=== PATIENT | male | born 1945 | race Caucasian/White ===

== ENCOUNTER 2017-02-21 16:27 | Inpatient (IN) | payer OTHER ==
[~2017-02-21] VITALS: Ht 167.6 cm; Wt 101.4 kg
[2017-02-21 17:06] LABS: MCH 28.2 PG (29.0-34.0); MCHC 32.4 G/DL (30.0-36.0); MCV 87.2 FL (86-99); MEAN PLAT.VOLUME 11.3 uM^3 (9.0-12.4); PLATELET COUNT 179 K/uL (156-360); RBC DIS.WIDTH-CV 15.6 % (11.8-14.6); RBC DIS.WIDTH-SD 50.3 % (39-53); RED BLOOD COUNT 4.36 M/uL (4.00-5.50); WHITE BLOOD COUNT 11.7 K/uL (4.1-10.2)
[2017-02-21 17:12] LABS: INTER. NORMALIZED RATIO 3.3; PROTHROMBIN TIME 37.6 SEC (10.2-12.9)
[2017-02-21 17:14] LABS: CHLORIDE 108 mEq/L (99-109); POTASSIUM 3.1 mEq/L (3.7-5.4); SODIUM 137 mEq/L (136-147)
[2017-02-21 17:15] LABS: PTT 38.9 SEC (25-37)
[2017-02-21 17:16] LABS: GLUCOSE 157 mg/dL (70-99)
[2017-02-21 17:18] LABS: ANION GAP 12 MEQ/L (2-14)
[2017-02-21 17:20] LABS: GFR ESTIMATE (CALCULATED) > 59 mL/min/
[2017-02-21 17:21] LABS: UREA NITROGEN (BUN) 12 mg/dL (9-23)
[2017-02-21 17:26] LABS: TROP-I INTERPRETATION NEGATIVE; TROPONIN-I 0.06 ng/mL (0.0-0.30)
[2017-02-21 18:46] LABS: ADD MIUA? YES; BILIRUBIN NEGATIVE; BLOOD MODERATE; COLOR YELLOW ((YELLOW)); GLUCOSE (STRIP) NEGATIVE; KETONES NEGATIVE; LEUKOCYTES NEGATIVE; NITRITE NEGATIVE; PROTEIN (STRIP) >=500; SPECIFIC GRAVITY 1.017 (1.000-1.030); UROBILINOGEN 0.2 MG/DL (0.2-1.0)
[2017-02-21 18:54] LABS: BACTERIA NONE SEEN /HPF; EPITHELIAL CELLS RARE /HPF; MUCUS TRACE /LPF; RED BLOOD CELLS 0-5 /HPF (0-5); UCUL ADDED? NO; WHITE BLOOD CELLS 0-5 /HPF (0-5)
[2017-02-21] MEDS ORDERED: COUMADIN2 MG PO ×2 (19:52→19:55)
[2017-02-21 20:21] LABS: INFLUENZA A VIRAL ANTIGEN NEGATIVE; INFLUENZA B VIRAL ANTIGEN NEGATIVE
[2017-02-21 22:39] LABS: POINT-OF-CARE METER ID UU13113774
[2017-02-21 23:08] VITALS: BP 174/84
[2017-02-21 23:57] VITALS: BP 147/73
[2017-02-22] MEDS ORDERED: NEURONTIN300 MG PO (00:07)
[2017-02-22] MEDS ORDERED: COREG12.5 M1 PO (00:08)
[2017-02-22] MEDS ORDERED: HYTRIN10 MG PO (00:09)
[2017-02-22] MEDS ORDERED: PACERONE200 MG PO (00:11)
[2017-02-22] MEDS ORDERED: LIPITOR40 MG PO (00:11)
[2017-02-22] MEDS ORDERED: ZESTRIL40 MG PO (00:15)
[2017-02-22] MEDS ORDERED: PRINIVIL20 MG PO (00:15)
[2017-02-22] MEDS ORDERED: LAXATIVE FEMININ5 MG PO (01:42)
[2017-02-22] MEDS ORDERED: OMEPRAZOLE20 MG PO (01:43)
[2017-02-22] MEDS ORDERED: METFORMIN HCL500 MG PO (01:44)
[2017-02-22] MEDS ORDERED: FINASTERIDE5 MG PO (01:45)
[2017-02-22] MEDS ORDERED: CYCLOBENZAPRINE10 MG PO (01:46)
[2017-02-22] MEDS ORDERED: ALLOPURINOL100 MG PO (01:47)
[2017-02-22] MEDS ORDERED: PROAIR RESPICL90 MCG IH (01:53)
[2017-02-22] MEDS ORDERED: ARTIFICIAL TEAR15 M1 BOTH EYES (01:57)
[2017-02-22 05:05] LABS: HEMATOCRIT 34.5 % (38.0-50.0); MCH 28.2 PG (29.0-34.0); MCHC 32.2 G/DL (30.0-36.0); MCV 87.8 FL (86-99); MEAN PLAT.VOLUME 11.3 uM^3 (9.0-12.4); PLATELET COUNT 160 K/uL (156-360); RBC DIS.WIDTH-CV 15.9 % (11.8-14.6); RBC DIS.WIDTH-SD 51.4 % (39-53); RED BLOOD COUNT 3.93 M/uL (4.00-5.50); WHITE BLOOD COUNT 10.4 K/uL (4.1-10.2)
[2017-02-22 05:17] LABS: CHLORIDE 111 mEq/L (99-109); SODIUM 141 mEq/L (136-147)
[2017-02-22 05:19] LABS: GLUCOSE 121 mg/dL (70-99)
[2017-02-22 05:20] LABS: ANION GAP 10 MEQ/L (2-14)
[2017-02-22 05:21] LABS: TOTAL BILIRUBIN 0.8 mg/dL (0.0-1.0)
[2017-02-22 05:23] LABS: ALKALINE PHOSPHATASE 60 IU/L (3-129); GFR ESTIMATE (CALCULATED) > 59 mL/min/
[2017-02-22 05:24] LABS: UREA NITROGEN (BUN) 14 mg/dL (9-23)
[2017-02-22 06:29] LABS: POINT-OF-CARE METER ID UU13113774
[2017-02-22 07:44] VITALS: BP 171/79
[2017-02-22 09:06] VITALS: BP 142/75
[2017-02-22 11:41] LABS: INTER. NORMALIZED RATIO 2.4; PROTHROMBIN TIME 27.4 SEC (10.2-12.9)
[2017-02-22 12:23] LABS: POINT-OF-CARE METER ID UU13113774
[2017-02-22 13:13] LABS: C DIFF TOXIN NEGATIVE (NEGATIVE)
[2017-02-22 13:21] LABS: PROBE CHECK PASS; SPECIMEN PROCESSING CONTROL PASS
[2017-02-22 16:06] VITALS: BP 146/71
[2017-02-22 16:49] LABS: POINT-OF-CARE METER ID UU13113725
[2017-02-22 21:19] LABS: POINT-OF-CARE METER ID UU13113774
[2017-02-23 00:23] VITALS: BP 167/89
[2017-02-23 05:58] LABS: HEMATOCRIT 35.5 % (38.0-50.0); MCH 27.4 PG (29.0-34.0); MCV 88.3 FL (86-99); MEAN PLAT.VOLUME 11.8 uM^3 (9.0-12.4); PLATELET COUNT 173 K/uL (156-360); RBC DIS.WIDTH-CV 16.2 % (11.8-14.6); RBC DIS.WIDTH-SD 53.2 % (39-53); RED BLOOD COUNT 4.02 M/uL (4.00-5.50); WHITE BLOOD COUNT 7.9 K/uL (4.1-10.2)
[2017-02-23 06:01] LABS: POINT-OF-CARE METER ID UU13113725
[2017-02-23 06:08] LABS: INTER. NORMALIZED RATIO 2.3; PROTHROMBIN TIME 26.3 SEC (10.2-12.9)
[2017-02-23 06:37] LABS: ANION GAP 11 MEQ/L (2-14); CHLORIDE 111 MEQ/L (99-109); GFR ESTIMATE (CALCULATED) > 59 mL/min/; GLUCOSE 128 mg/dL (70-99); POTASSIUM 3.5 MEQ/L (3.7-5.4); SAMPLE HEMOLYSIS CHECK 0; SAMPLE ICTERIC CHECK 0; SAMPLE LIPEMIA CHECK 0; SODIUM 142 MEQ/L (136-147); UREA NITROGEN (BUN) 12 mg/dL (9-23)
[2017-02-23 08:00] VITALS: BP 154/81
[2017-02-23 12:02] LABS: POINT-OF-CARE METER ID UU13113725
[2017-02-23 16:32] LABS: POINT-OF-CARE METER ID UU13113725
[2017-02-23 21:02] LABS: POINT-OF-CARE METER ID UU13113774
[2017-02-24 00:01] VITALS: BP 170/84
[2017-02-24 00:03] VITALS: BP 162/82
[2017-02-24 06:28] LABS: POINT-OF-CARE METER ID UU13113774
[2017-02-24 06:36] LABS: INTER. NORMALIZED RATIO 2.7; PROTHROMBIN TIME 30.7 SEC (10.2-12.9)
[2017-02-24 06:49] LABS: ANION GAP 12 MEQ/L (2-14); CHLORIDE 111 MEQ/L (99-109); GFR ESTIMATE (CALCULATED) > 59 mL/min/; GLUCOSE 132 mg/dL (70-99); POTASSIUM 3.5 MEQ/L (3.7-5.4); SAMPLE HEMOLYSIS CHECK 0; SAMPLE ICTERIC CHECK 0; SAMPLE LIPEMIA CHECK 0; SODIUM 143 MEQ/L (136-147); UREA NITROGEN (BUN) 12 mg/dL (9-23)
[2017-02-24 07:20] VITALS: BP 170/84
[2017-02-24 11:03] LABS: POINT-OF-CARE METER ID UU13113725
[2017-02-24] MEDS ORDERED: ATORVASTATIN CA40 MG PO (14:55)
[2017-02-24] MEDS ORDERED: LISINOPRIL40 MG PO (14:55)
[2017-02-24 15:20] VITALS: BP 164/76
[2017-02-24 16:25] LABS: POINT-OF-CARE METER ID UU13113725
== END 2017-02-24 17:39 | disposition home health service (06) | DRG 872 ==
LOC: EME 16:27 → EDOF 19:37 → 5EAST 19:37 → ENRESERV 19:56 → 5EAST 21:45
PROVIDERS: Emergency Medicine; Hospitalist; Internal Medicine
DX: A41.9 Sepsis, unspecified organism (principal); B34.9 Viral infection, unspecified; E86.0 Dehydration; E87.2 Acidosis; I48.91 Unspecified atrial fibrillation; J44.9 Chronic obstructive pulmonary disease, unspecified; E11.9 Type 2 diabetes mellitus without complications; R55 Syncope and collapse; I10 Essential (primary) hypertension; R19.7 Diarrhea, unspecified; W19.XXXA Unspecified fall, initial encounter; I67.2 Cerebral atherosclerosis; E87.6 Hypokalemia; E78.5 Hyperlipidemia, unspecified; N40.0 Benign prostatic hyperplasia without lower urinary tract symptoms; M17.11 Unilateral primary osteoarthritis, right knee; Z91.81 History of falling; Z79.01 Long term (current) use of anticoagulants; Z87.891 Personal history of nicotine dependence
CPT/HCPCS: 70450; 71020; 73564; 73590; 80048; 80053; 81003; 82948; 83605; 84484; 85027; 85610; 85730; 87040; 87493; 87502; 93005; 99281; 99285; J1815; J2543; J3370; J7030; J7050; J7120; J7644